=== PATIENT | female | born 1975 | race Caucasian/White ===

== ENCOUNTER → 2016-12-04 16:27 | Outpatient (CLI) | payer MEDICAID ==
[2010-09-05 10:30] VITALS: BMI 16.3
== END | disposition home or self-care (01) ==
LOC: D.MAMMO 10:00
DX: R92.8 Other abnormal and inconclusive findings on diagnostic imaging of breast (principal)

== ENCOUNTER → 2017-01-12 15:00 | Outpatient (CLI) | payer MEDICAID ==
[2010-09-05 10:30] VITALS: BMI 16.3
== END | disposition home or self-care (01) ==
LOC: D.MRI 01-11 13:00
DX: M54.2 Cervicalgia (principal); M54.5 Low back pain

== ENCOUNTER → 2018-08-20 17:07 | Outpatient (CLI) | payer MEDICAID ==
[2010-09-05 10:30] VITALS: BMI 16.3
== END | disposition home or self-care (01) ==
LOC: D.MAMMO 13:30
DX: Z12.31 Encounter for screening mammogram for malignant neoplasm of breast (principal)

== ENCOUNTER 2019-08-19 19:30 | Outpatient (CLI) | payer MEDICAID ==
[2010-09-05 10:30] VITALS: BMI 16.3
== END 2019-08-19 23:59 | disposition home or self-care (01) ==
LOC: D.MAMMO 19:30
PROVIDERS: ATTEND Nurse Practitioner
DX: Z12.31 Encounter for screening mammogram for malignant neoplasm of breast (principal)

== ENCOUNTER 2020-05-07 15:08 | Emergency (ER) | payer MEDICAID ==
[~2020-05-07] VITALS: Ht 149.9 cm; Wt 55.5 kg
[2020-05-07 15:40] VITALS: BP 118/68; Ht 149.9 cm; Wt 55.5 kg
[2020-05-07] MEDS ORDERED: GABAPENTIN100 MG (15:44)
[2020-05-07] MEDS ORDERED: ZYPREXA2.5 MG (15:44)
[2020-05-07] MEDS ORDERED: RISPERDAL1 MG (15:44)
[2020-05-07] MEDS ORDERED: HYDROXYZINE HCL10 MG (15:45)
== END 2020-05-07 17:42 | disposition home or self-care (01) ==
LOC: D.ER 15:08
DX: K59.09 Other constipation (principal)

== ENCOUNTER → 2020-12-16 14:39 | Outpatient (CLI) | payer MEDICAID ==
[2020-05-07 15:40] VITALS: BMI 24.7
[~2020-12-16 14:39] MED LIST: GABAPENTIN100 MG; HYDROXYZINE HCL10 MG; RISPERDAL1 MG; ZYPREXA2.5 MG
== END | disposition home or self-care (01) ==
LOC: D.LAB 14:39
DX: R06.02 Shortness of breath (principal)

== ENCOUNTER → 2021-01-13 09:30 | Outpatient (CLI) | payer MEDICAID ==
[2020-05-07 15:40] VITALS: BMI 24.7
== END | disposition home or self-care (01) ==
LOC: D.RT 12-21 09:00
PROVIDERS: ATTEND Nurse Practitioner
DX: R06.02 Shortness of breath (principal)